=== PATIENT | female | born 1965 | race Two or more races ===

== ENCOUNTER → 2016-12-06 | Outpatient (CLI) | payer OTHER ==
--- NOTE | 2016-12-07 10:23 | Diagnostic Imaging Report ---
Indication: WEAK Technique: sagittal T1 fast spin echo, axial T1 FLAIR, axial T2 FLAIR, axial T2 FS PROPELLER, axial T2* GRE, axial diffusion weighted images. ADC and exponential ADC maps generated Comparison: None Findings:Motion artifact Swain some of the sequences. No abnormal areas of restricted diffusion to suggest acute infarction. No acute hemorrhage or edema. No mass effect nor midline shift. Normal size ventricles and extra axial CSF spaces. Visualized orbits and sinuses are unremarkable. Impression: Negative
== END | disposition home or self-care (01) ==
LOC: MRI 16:52
DX: R53.1 Weakness (principal)
CPT/HCPCS: 70551